=== PATIENT | female | born 1975 | race African-American/Black ===

== ENCOUNTER 2019-10-15 19:50 | Emergency (ER) | payer MEDICAID ==
[~2019-10-15] VITALS: Ht 162.6 cm; Wt 119.0 kg
[~2019-10-15 19:50] MED LIST: CLIN300C11 PO; chlorhexidine
[2019-10-15] MEDS ORDERED: SODIUM CHLORIDE 0.9% 1,000 ML IV ONE (20:51)
[2019-10-15] MEDS ORDERED: ONDANSETRON HCL 4MG/2ML INJ IV ONE (21:00)
[2019-10-15] MEDS ORDERED: DIPHENHYDRAMINE 50MG/ML VIAL IV ONE (21:00)
[2019-10-15] MEDS ORDERED: FAMOTIDINE 20MG/2ML VIAL IV ONE (21:00)
[2019-10-15] MEDS ORDERED: DEXAMETHASONE 10 MG/ML VIAL IV ONE (21:00)
[2019-10-16] MEDS ORDERED: KETOROLAC 30MG/ML VIAL IV ONE
[2019-10-16 02:57] VITALS: BP 125/62
== END 2019-10-16 03:08 | disposition home or self-care (01) ==
LOC: ER 19:50
DX: L23.4 Allergic contact dermatitis due to dyes (principal); E11.9 Type 2 diabetes mellitus without complications; I10 Essential (primary) hypertension; L50.9 Urticaria, unspecified; L29.9 Pruritus, unspecified; Z90.49 Acquired absence of other specified parts of digestive tract; Z90.710 Acquired absence of both cervix and uterus; Z88.0 Allergy status to penicillin; Z90.89 Acquired absence of other organs
CPT/HCPCS: 96374; 96375; 99284; J1100; J1200; J1885; J2405; J3490; J7030